=== PATIENT | male | born 1955 | race Caucasian/White ===

== ENCOUNTER → 2020-04-04 | Outpatient (CLI) | payer OTHER ==
[~2020-04-04] MED LIST: ASCO-96 PO; CALC-255 PO; CELE200C PO; CHOL400T2 PO; FINA5TAB4 PO; GLUC1CAP48 PO; LACT1CAP35 PO; LEFL10TA PO; LEVA15HF4 INH; MAGN200T PO; MULT-464 PO; PANT40TA5 PO; SUMA100T4 PO; TERA5CAP3 PO; TRAM50TA2 PO; TRAZ-175 PO
== END | disposition home or self-care (01) ==
LOC: CVU 12:36
PROVIDERS: ATTEND Internal Medicine Cardiovascular Disease
DX: I35.8 Other nonrheumatic aortic valve disorders (principal); I11.9 Hypertensive heart disease without heart failure; I48.0 Paroxysmal atrial fibrillation
CPT/HCPCS: 93306; 93922